=== PATIENT | female | born 1995 | race Hispanic/Latino ===

== ENCOUNTER 2022-07-02 21:39 | Inpatient (IN) | payer OTHER ==
[~2022-07-02] VITALS: Ht 157.5 cm; Wt 82.1 kg
[2022-07-02 23:00] LABS: APPEARANCE,URINE SL CLOUDY (CLEAR); BILIRUBIN,URINE NEGATIVE (NEGATIVE); COLOR,URINE YELLOW (YELLOW); GLUCOSE, URINE (UA) NEGATIVE (NEGATIVE); KETONES,URINE 5 mg/dL (NEGATIVE); LEUKOCYTE ESTERASE ,URINE LARGE (NEGATIVE); NITRATE,URINE NEGATIVE (NEGATIVE); OCCULT BLOOD,URINE MODERATE (NEGATIVE); PROTEIN,URINE NEGATIVE (NEGATIVE); UROBILINOGEN,URINE 0.2 mg/dL (0.2-1.0)
[2022-07-02 23:17] LABS: TRICHOMONAS,URINE Few /LPF (None Seen); WBC,URINE 26-50 /HPF (0-1)
[2022-07-02 23:18] LABS: SQUAMOUS EPITHELIAL CELL,UR Few /HPF (0-2)
[2022-07-02 23:20] LABS: BACTERIA,URINE Few /HPF (None Seen)
[2022-07-02 23:25] LABS: AMPHET/METH SCREEN,URINE NEGATIVE (NEGATIVE); BENZODIAZEPINES SCREEN,URINE NEGATIVE (NEGATIVE); CANNABINOID SCREEN,URINE NEGATIVE (NEGATIVE); COCAINE SCREEN,URINE NEGATIVE (NEGATIVE); PHENCYCLIDINE SCREEN,URINE NEGATIVE (NEGATIVE)
[2022-07-03] MEDS ORDERED: METRONIDAZOLE 500 MG TABLET PO SCH
[2022-07-03] MEDS: LACTATED RINGERS 1000ML 1,000 ML IV SCH ×2 (00:17→23:30)
[2022-07-03] MEDS ORDERED: AMPICILLIN 2GM+NS 100ML 100 ML IV SCH (01:00)
[2022-07-03] MEDS ORDERED: LACTATED RINGERS 1000ML 1,000 ML IV PRN (01:00)
[2022-07-03 01:04] LABS: HEMATOCRIT 36.2 % (36-48); MEAN CORPUSCULAR HEMOGLOBIN 29.2 pg (27.0-33.0); MEAN CORPUSCULAR HGB CONC 34.3 g/dL (32.0-36.0); MEAN CORPUSCULAR VOLUME 85.2 fL (79-99); RED BLOOD CELL COUNT(AUTO) 4.25 MIL/uL (4.00-5.50); RED CELL DISTRIBUTION WIDTH 14.9 % (11.0-15.5)
[2022-07-03] MEDS ORDERED: AMPICILLIN 2GM+NS 100ML 100 ML IV ONE (01:05)
[2022-07-03] MEDS ORDERED: AMPICILLIN 1GM+NS 50ML 50 ML IV SCH (05:00)
[2022-07-03] MEDS ORDERED: OXYTOCIN-LR 20 UNITS/1000 ML 1,000 ML IV SCH ×2 (07:30→17:30)
[2022-07-03] MEDS ORDERED: FENTANYL CITRATE PF 50 MCG/1 ML 2ML VIAL ONE (07:48)
[2022-07-03] MEDS ORDERED: ROPIVACAINE 0.2% 100ML VIAL 100 ML EP SCH (08:00)
[2022-07-03] MEDS ORDERED: EPHEDRINE SULFATE 50 MG/ML AMPULE IVP PRN (08:00)
[2022-07-03] MEDS ORDERED: LACTATED RINGERS 500 ML 500 ML IV PRN (08:00)
[2022-07-03] MEDS ORDERED: NALOXONE HCL 0.4 MG/1 ML ML IV PRN (08:00)
[2022-07-03 09:40] LABS: RAPID PLASMA REAGIN NONREACTIVE (NONREACTIVE)
[2022-07-03] MEDS ORDERED: MISOPROSTOL 200 MCG TABLET ONE (13:11)
[2022-07-03] MEDS ORDERED: METHYLERGONOVINE MALEATE 0.2 MG/1 ML ML ONE (13:11)
[2022-07-03] MEDS ORDERED: METHYLERGONOVINE MALEATE 0.2 MG/1 ML ML IM SCH (15:00)
[2022-07-03] MEDS ORDERED: MISOPROSTOL 200 MCG TABLET PR SCH (15:00)
[2022-07-03] MEDS ORDERED: DIPH,PERTUSS(ACELL),TET VAC/PF 0.5 ML VIAL IM PRN (17:30)
[2022-07-03] MEDS ORDERED: WITCH HAZEL 1 PAD TP PRN (17:30)
[2022-07-03] MEDS ORDERED: MEASLES/MUMPS/RUBELLA VACCINE, LIVE 0.5 ML/VIAL SQ PRN (17:30)
[2022-07-03] MEDS ORDERED: LANOLIN 30GM OINTMENT TP PRN (17:30)
[2022-07-03] MEDS ORDERED: BENZOCAINE/LANOLIN/ALOE VERA 60 ML AEROSOL TP PRN (17:30)
[2022-07-03] MEDS ORDERED: ACETAMINOPHEN WITH CODEINE 1 TAB TAB PO PRN (17:30)
[2022-07-03] MEDS ORDERED: ACETAMINOPHEN 325 MG TAB PO PRN (17:30)
[2022-07-03] MEDS: IBUPROFEN 600 MG TABLET PO PRN (20:26)
[2022-07-03 21:48] VITALS: BP 111/58
[2022-07-03] MEDS: DOCUSATE SODIUM 100 MG CAP PO SCH (21:52)
[2022-07-03 22:59] VITALS: BP 104/59
[2022-07-04 03:35] VITALS: BP 113/76
[2022-07-04 06:43] LABS: HEMATOCRIT 27.8 % (36-48); MEAN CORPUSCULAR HEMOGLOBIN 28.6 pg (27.0-33.0); MEAN CORPUSCULAR HGB CONC 32.7 g/dL (32.0-36.0); MEAN CORPUSCULAR VOLUME 87.4 fL (79-99); RED BLOOD CELL COUNT(AUTO) 3.18 MIL/uL (4.00-5.50); RED CELL DISTRIBUTION WIDTH 15.1 % (11.0-15.5); WHITE BLOOD COUNT (AUTO) 11.3 K/uL (4.8-10.8)
[2022-07-04 06:53] VITALS: BP 103/64
[2022-07-04] MEDS: LACTATED RINGERS 1000ML 1,000 ML IV SCH ×2 (07:30→15:30)
[2022-07-04] MEDS: DOCUSATE SODIUM 100 MG CAP PO SCH (08:44)
[2022-07-04] MEDS: IBUPROFEN 600 MG TABLET PO PRN (08:45)
[2022-07-04 11:36] VITALS: BP 113/59
[2022-07-07 10:13] LABS: OPIATES SCREEN URINE Negative ng/mL (Cutoff=300)
== END 2022-07-04 17:30 | disposition home or self-care (01) | DRG 807 ==
LOC: EDH 21:39 → OBSVTOIN 22:07 → LDH 22:07 → WSH 07-03 21:45
PROVIDERS: ADMIT Obstetrics & Gynecology; ATTEND Obstetrics & Gynecology
PROC: 10E0XZZ Delivery of Products of Conception, External Approach (ICD-10-PCS; principal; 2022-07-03)
PROC: 0KQM0ZZ Repair Perineum Muscle, Open Approach (ICD-10-PCS; 2022-07-03)
PROC: 3E0P7VZ Introduction of Hormone into Female Reproductive, Via Natural or Artificial Opening (ICD-10-PCS; 2022-07-03)
DX: O62.2 Other uterine inertia (principal); Z37.0 Single live birth; O69.81X0 Labor and delivery complicated by cord around neck, without compression, not applicable or unspecified; O70.1 Second degree perineal laceration during delivery; O77.0 Labor and delivery complicated by meconium in amniotic fluid
CPT/HCPCS: 36415; 76805; 80305; 81001; 85027; 86592; 86701; 86850; 86900; 86901; 87088; 87340; 87389; 87390; A4314; G0378; J0290; J2210; J2590; J3010; J7120